=== PATIENT | male | born 1985 | race Caucasian/White ===

== ENCOUNTER 2019-11-27 09:53 | Emergency (ER) | payer MEDICAID, OTHER ==
[~2019-11-27] VITALS: Ht 177.8 cm; Wt 99.8 kg
[2019-11-27 10:16] VITALS: BP 132/77
== END 2019-11-27 11:01 | disposition home or self-care (01) ==
LOC: ER 09:53
DX: S93.402A Sprain of unspecified ligament of left ankle, initial encounter (principal); W11.XXXA Fall on and from ladder, initial encounter; Y93.89 Activity, other specified; Y92.009 Unspecified place in unspecified non-institutional (private) residence as the place of occurrence of the external cause; Y99.8 Other external cause status
CPT/HCPCS: 73610

== ENCOUNTER 2020-04-22 00:53 | Emergency (ER) | payer MEDICAID ==
[~2020-04-22] VITALS: Ht 182.9 cm; Wt 90.7 kg
[2020-04-22 04:55] VITALS: BP 120/86
== END 2020-04-22 07:59 | disposition home or self-care (01) ==
LOC: ER 00:54
DX: J01.00 Acute maxillary sinusitis, unspecified (principal); R50.9 Fever, unspecified; R09.81 Nasal congestion; Z20.828 Contact with and (suspected) exposure to other viral communicable diseases
CPT/HCPCS: 36415; 71045; 87426; 99284; C9803; U0003

== ENCOUNTER 2020-05-29 19:04 | Emergency (ER) | payer MEDICAID ==
[~2020-05-29] VITALS: Ht 177.8 cm; Wt 97.5 kg
[2020-05-29 22:30] VITALS: BP 128/9
== END 2020-05-29 22:58 | disposition home or self-care (01) ==
LOC: ER 19:04
DX: R06.02 Shortness of breath (principal); R05 Cough; R51.9 Headache, unspecified; R19.7 Diarrhea, unspecified; Z20.828 Contact with and (suspected) exposure to other viral communicable diseases
CPT/HCPCS: 36415; 71045; 87426